=== PATIENT | female | born 1985 | race Caucasian/White ===

== ENCOUNTER 2022-11-24 09:05 | Emergency (ER) | payer OTHER, SELFPAY ==
[2022-11-24 09:14] VITALS: BP 122/80; PULSE 122; RESP 16; TEMP 38; O2SAT 99
--- NOTE | 2022-11-24 09:40 | ED.URI ---
HPI - URI/Sore Throat General Chief Complaint: Upper Respiratory Infection Stated Complaint: uri Time Seen by Provider: 11/24/22 09:41 Source: patient and RN notes reviewed Mode of arrival: ambulatory Limitations: no limitations History of Present Illness HPI Narrative: 37-year-old female presented for complaint of headache, body aches, sinus pressure/congestion, cough, fever/chills. Onset 2 days ago. Sore throat worsening over the last couple of days. Fever up to 101 today. Endorses a rash to the right rib area 1st noticed today. She endorses COVID exposure, states she tested negative yesterday and the day before when symptoms started. Denies shortness of breath, wheezing, nausea, vomiting, diarrhea. She is taking Tylenol for symptoms. MD elicited complaint: cough Related Data Home Medications Medication Instructions Recorded Confirmed levothyroxine 100 mcg tablet 100 mcg PO DAILY 11/24/22 11/24/22 (Levoxyl) Allergies Allergy/AdvReac Type Severity Reaction Status Date / Time sulfamethoxazole Allergy Swelling Verified 11/24/22 09:24 [From Bactrim] of Lip/Tongue/Throat trimethoprim [From Bactrim] Allergy Swelling Verified 11/24/22 09:24 of Lip/Tongue/Throat Review of Systems Review of Systems: CONSTITUTIONAL: Endorses malaise, chills, sweats, fever EYES: Denies visual changes, redness, or discharge ENT: Reports rhinorrhea, congestion, sinus pain, otalgia, sore throat CARDIOVASCULAR: Denies chest pain, palpitations, edema RESPIRATORY: Reports cough, post nasal drainage. Denies dyspnea GASTROINTESTINAL: Denies abdominal pain, nausea, vomiting, diarrhea SKIN: Denies rash or itching MUSCULOSKELETAL: Endorses myalgia Exam Narrative: GENERAL: Ill-appearing, nontoxic EYES: PERRLA, conjunctivae clear ENT: Mucous membranes moist. Nasal congestion. TMs pearly [place] with dull light reflex bilaterally; no tragal tenderness. Oropharynx erythematous without lesions or exudate, no drooling, no hoarseness, no trismus, uvula midline. CHEST: Clear to auscultation, breath sounds equal. HEART: Regular rate and rhythm. No murmur heard. SKIN: Warm, dry, no rash. NEURO: Alert and oriented x3. PSYCH: Normal mood and affect Course Course Emergency Course: Patient is aware of diagnosis, understands and agrees to treatment plan. Anticipatory guidance given. Patient agrees to follow-up as directed and is aware of reasons to seek care at the emergency department. Portions of this record may have been created with voice recognition software Level of Care: Express Care Visit Vital Signs Vital signs: Vital Signs Temperature 100.4 F H 11/24/22 09:14 Pulse Rate 122 H 11/24/22 09:14 Respiratory Rate 16 11/24/22 09:14 Blood Pressure 122/80 11/24/22 09:14 Pulse Oximetry 99 11/24/22 09:14 Oxygen Delivery Room Air 11/24/22 09:14 Temperature 100.4 F H 11/24/22 09:14 Pulse Rate 122 H 11/24/22 09:14 Respiratory Rate 16 11/24/22 09:14 Blood Pressure 122/80 11/24/22 09:14 Pulse Oximetry 99 11/24/22 09:14 Oxygen Delivery Room Air 11/24/22 09:14 reviewed MDM - URI/Sore Throat MDM Narrative Medical decision making narrative: Results of strep, COVID, flu reviewed with patient. Will treat for strep based on PE and cc. Advised supportive measures and signs/symptoms to go to the ER. Pt is appropriate for outpt treatment and f/u. Differential Diagnosis Differential diagnosis: Likely upper respiratory infection, sinusitis and viral infection Lab Data Labs: Lab Results 11/24/22 Range/Units 10:11 POC SARS CoV-2 Ag Pending Influenza A Screen Negative Reference Range: Negative Influenza B Screen Negative Reference Range: Negative Strep Screen Presumptive Negative *(Reference Range: Negativ
== END 2022-11-24 10:30 | disposition home or self-care (01) ==
PROVIDERS: Emergency Provider Nurse Practitioner Family; PCP Family Medicine
DX: J02.9 Acute pharyngitis, unspecified (principal); Z20.822 Contact with and (suspected) exposure to COVID-19
CPT/HCPCS: 87081; 87426; 87804; 87880; 99203; C9803; G0463

== ENCOUNTER 2024-02-01 15:10 | Outpatient (CLI) | payer OTHER, SELFPAY ==
--- NOTE | ~2024-02-01 | MM_ITS ---
EXAMINATION: MM screening hunter BI w stanislaw HISTORY: Screening TECHNIQUE: Craniocaudal and mediolateral oblique 3-D tomosynthesis images were obtained and synthetic 2-D images were generated. CAD analysis was submitted and interpreted. COMPARISON: 11/28/2013 BREAST PARENCHYMAL COMPOSITION: Dense: The breasts are extremely dense, which lowers the sensitivity of mammography. FINDINGS: There is no evidence of suspicious mass, calcification, or architectural distortion to sugg est malignancy in either breast. There has been no suspicious interval change. IMPRESSION: 1. No mammographic evidence of malignancy. 2. Recommend routine screening mammography in one year. BI-RADS Category 1: Negative Reviewed, dictated and finalized at location B.
== END 2024-02-01 15:11 ==
LOC: MICIMG 15:12
PROVIDERS: PCP Obstetrics & Gynecology; Visit Provider Obstetrics & Gynecology
DX: Z12.31 Encounter for screening mammogram for malignant neoplasm of breast (principal)
CPT/HCPCS: 77063; 77067

== ENCOUNTER 2024-04-10 10:36 | Observation (INO) | payer OTHER, SELFPAY ==
[2024-04-10] VITALS (9 sets, daily range): BP systolic 108–131; BP diastolic 72–96; PULSE 95–118; RESP 15–25; TEMP 36.5–37.2; O2SAT 98–100
--- NOTE | ~2024-04-10 | XR_ITS ---
Clinical Indication: Chest pain PA and lateral views of the chest: Comparison: None Findings: The lungs are clear, without evidence of focal consolidation or pleural effusion. Cardiome diastinal silhouette is within normal limits. Bones and soft tissues are unremarkable. Impression: Normal chest. Reviewed, dictated and finalized at location . Impression: Normal chest.
--- NOTE | ~2024-04-10 | CT_ITS ---
EXAMINATION: CTA chest PE protocol DATE: 04/10/2024 15:03 INDICATION: Chest pain. Shortness of breath. TECHNIQUE: Computed tomography angiography (CTA) of the chest was performed with 100 mL Omnipaque-350 intravenous contrast timed to evaluate the pulmonary arteries. Coronal maximum intensity projection 3D-reconstructions were created by the technologist. Automated exposure control and iterative reconst ruction technique were employed. The dose-length product was 170.99 mGy-cm. COMPARISON: CT abdomen and pelvis 12/26/2015 FINDINGS: There are airspace opacities with air bronchograms in the anterior segment right upper lobe . There are airspace and groundglass opacities with air bronchograms in left lower lobe. No pleural e ffusion. The heart size is normal. No pericardial effusion. There is no pulmonary embolus. There is m ild thoracic spondylosis. IMPRESSION: 1. Airspace opacities in right upper lobe and left lower lobe, consistent with pneumonia. 2. No pulmonary embolus. Reviewed, dictated and finalized at location A.
--- NOTE | 2024-04-10 10:37 | ECG_ITS ---
Test Date: 2024-04-10 10:41:54 Measurements Intervals [place] Rate: 121 P: 75 MT: 141 QRS: 56 QRSD: 97 T: 39 QT: 307 QTc: 436 Interpretive Statements SINUS TACHYCARDIA POSSIBLE RIGHT VENTRICULAR CONDUCTION DELAY [RSR (QR) IN V1/V2] ABNORMAL RHYTHM ECG No previous ECG available for comparison Electronically Signed On 04-10-2024 15:55:00 CDT by Vasu Chu M.D.
[2024-04-10 10:53] LABS: Basophils Percent Auto 0.5 % (0.2-1.2); Eosinophils Percent Auto 0.8 % (0-4.4); Hematocrit 40.2 % (37.0-47.0); Hemoglobin 13.4 g/dL (12.0-15.0); Immature Granulocyte Absolute 0.02 K/mm3 (0.00-0.031); Immature Granulocyte Percent A 0.5 % (0-0.5); Lymphocytes Absolute Auto 1.07 K/mm3 (0.9-3.2); Lymphocytes Percent Auto 28.7 % (18.3-44.2); Mean Corpuscular HGB Conc 33.3 g/dl (32-36); Mean Corpuscular Hemoglobin 29.9 pg (26-34); Mean Corpuscular Volume 89.7 fl (80-100); Mean Platelet Volume 9.7 fl (7.4-10.4); Monocytes Absolute Auto 0.5 K/mm3 (0.1-0.6); Monocytes Percent Auto 12.6 % (2.6-8.5); Neutrophils Absolute Auto 2.1 K/mm3 (1.3-6.7); Neutrophils Percent Auto 56.9 % (45.5-73.1); Platelet Count Result 291 k/mm3 (150-375); Red Blood Count 4.48 M/mm3 (4.2-5.4); Red Cell Distribution Width 11.9 % (11.5-14.5); White Blood Count 3.7 K/mm3 (4.5-10.0)
[2024-04-10 11:03] LABS: Prothrombin Time 13.2 Seconds (11.1-14.7)
[2024-04-10 11:05] LABS: Alanine Aminotransferase 21 U/L (6-35); Albumin Level 4.7 g/dL (3.5-5.1); Alkaline Phosphatase 67 U/L (38-126); Anion Gap 10 mmol/L (4-12); Aspartate Amino Transferase 30 U/L (14-36); Bilirubin,Total 0.4 mg/dL (0.2-1.3); Blood Urea Nitrogen 8 mg/dL (7-17); Calcium 9.4 mg/dL (8.4-10.2); Carbon Dioxide 26 mmol/L (22-30); Chloride 104 mmol/L (98-107); Estimated CRCL calculation 86 ml/min; Estimated Glomerular Filt Rate > 60; Glucose 100 mg/dL (65-110); Lipase 82 U/L (23-300); Potassium 3.7 mmol/L (3.4-5.0); Sodium 140 mmol/L (137-145)
[2024-04-10 11:15] LABS: Troponin I < 0.012 ng/mL (0.000-0.034)
[2024-04-10 11:17] LABS: Platelet Estimate Adequate (Adequate); Schistocytes None Seen
[2024-04-10] MEDS: ASPIRIN 81 MG CHEWABLE TABLET 324 MG PO (13:23)
--- NOTE | 2024-04-10 13:37 | ECG_ITS ---
Test Date: 2024-04-10 13:50:18 Measurements Intervals [place] Rate: 107 P: 62 UT: 145 QRS: 35 QRSD: 102 T: 29 QT: 345 QTc: 461 Interpretive Statements SINUS TACHYCARDIA MINOR RV CONDUCTION ABNORMALITY ABNORMAL RHYTHM ECG Compared to ECG 04/10/2024 10:41:54 No significant changes Electronically Signed On 04-10-2024 16:02:31 CDT by Vasu Chu M.D.
[2024-04-10 14:21] LABS: D Dimer 0.75 ug/mL (<0.48)
[2024-04-10] MEDS: SODIUM CHLORIDE 0.9% IV 1,000 ML 999 ML IV CONT (14:26)
[2024-04-10 14:31] LABS: Troponin I < 0.012 ng/mL (0.000-0.034)
--- NOTE | 2024-04-10 14:38 | ED.CHESTPAIN ---
HPI - Chest Pain General Chief Complaint: Chest Pain Stated Complaint: SOB, CP, fast HR (being treated for pneumonia) Time Seen by Provider: 04/10/24 13:27 Source: patient, RN notes reviewed and old records reviewed Mode of arrival: ambulatory Limitations: no limitations History of Present Illness HPI narrative: This is a 38 year old female who presents for evaluation of heart racing and shortness of breath. Patient states she developed nasal congestion, drainage, and minimally productive cough 1.5 weeks ago. She was evaluated by her PCP on Wednesday and diagnosed with walking pneumonia. SHe was started on albuterol inhaler, anjelica parikh. She states that she has noticed difficult taking a full deep breath and her heart rate has been elevated today. She reports she feels her heart pounding. HEr cough has improved. She states her son had similar symptoms 3 weeks ago. She just returned from a trip to [place]. She denies calf pain, fever, leg swelling or history of dvt/Pe. MD complaint: chest pain Related Data Home Medications Medication Instructions Recorded Confirmed multivitamin with minerals-folic 1 tablet PO HS 04/10/24 04/10/24 acid 120 mcg chewable tablet (Women's Multivitamin Gummies) Allergies Allergy/AdvReac Type Severity Reaction Status Date / Time acetaminophen Allergy Intermediate Swelling Verified 04/10/24 13:12 Sulfa (Sulfonamide Allergy Unknown THROAT Verified 04/10/24 13:12 Antibiotics) TIGHTENING, TROUBLE SWALLOWING sulfamethoxazole Allergy Swelling Verified 04/10/24 13:12 [From Bactrim] of Lip/Tongue/Throat trimethoprim [From Bactrim] Allergy Swelling Verified 04/10/24 13:12 of Lip/Tongue/Throat Review of Systems Constitutional: Constitutional: Denies weakness ENT: Reports nasal congestion Cardiovascular: Cardiovascular: Reports chest pain, Denies syncope, Reports rapid heart rate, Denies irregular heart rhythm, Denies leg edema and Reports dyspnea Respiratory: Respiratory: Denies chest congestion, Reports cough, Denies hemoptysis, Denies excessive phlegm production and Reports dyspnea Gastrointestinal: Gastrointestinal: Denies abdominal pain, Denies hematochezia, Denies diarrhea and Denies vomiting Genitourinary: Genitourinary: Denies hematuria and Denies dysuria Musculoskeletal: Musculoskeletal: Denies joint swelling, Denies loss of height and Denies muscle weakness Neurologic: Denies syncope, Denies focal weakness and Denies weakness PMFSH Past Medical History Medical History Hypothyroidism Telangiectasia macularis eruptiva perstans Family History Family History Grandparent Family history of malignant neoplasm of ovary, Onset Age: 67 Social History Social History Social History: Smoking status: Never smoker Second hand tobacco smoke exposure: No Alcohol intake: never Alcohol use details: Occasionally Substance use: never Substance use type: does not use Do You Feel Safe in your Home?: Yes Lack of Transportation: No Lack of Food: Never True Current Housing: I Have Housing Concerned About Future Housing: No Difficulty Paying Gas/Electric Bills: No Difficulty Paying for Meds: No Currently Unemployed: No Education: Decline to Answer Difficulty w/ Childcare or Family Care: No Living arrangements: with family Occupation/Education: occupation 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 Gender identity (if verbalized by the patient): Female Sexual Orientation (if Verbalized by the Patient): Straight or Heterosexual Spiritual care concerns: No Exam Const: General: no acute distress and alert Nutritional Appearance: well nourished Orientation/consciousness: patient oriented
[2024-04-10 14:58] LABS: Influenza A QL RT-PCR Negative (Negative); Influenza B QL RT-PCR Negative (Negative); SARS-CoV-2 RNA PCR Negative (Negative)
--- NOTE | 2024-04-10 16:12 | ECG_ITS ---
Test Date: 2024-04-10 16:17:23 Measurements Intervals [place] Rate: 102 P: 59 VA: 135 QRS: 27 QRSD: 97 T: 27 QT: 343 QTc: 448 Interpretive Statements SINUS TACHYCARDIA Compared to ECG 04/10/2024 13:50:18 No significant changes Electronically Signed On 04-11-2024 13:24:51 CDT by Randolph Seaman M.D.
--- NOTE | 2024-04-10 16:30 | PC.NURSE ---
This patient, Katie Betts, was admitted to [facility] Surg Room 311-01. Patient/family oriented to hospital policies and general routines including ID bracelet, bed and alarms, visiting hours, pain management, procedures, bathroom and other care routines, personal items, smoking policy, room service/diet, and visiting hours. Information on how to activate the Rapid Response Team has been discussed. Patient/Family are encouraged to report perceived risks to care and to ask questions if they do not understand what they are told or what they should do.
--- NOTE | 2024-04-10 16:53 | PM.IMHP ---
H&P: HPI History of Present Illness Date/Time: 04/10/24 20:00 Chief Complaint: Shortness of breath, chest pain, fast heart rate. Narrative: This is a 38-year-old female with hypothyroidism and mastocytosis who presented to the emergency department via private vehicle for evaluation of shortness of breath, chest pain, and fast heart rate. The patient provides the following history. She gives a 1.5 week history of nasal congestion, sinus drainage, and cough which has been really productive of yellow phlegm. Her appetite has not been great. She was seen by her primary care provider on Wednesday, was diagnosed with walking pneumonia, and was prescribed a Z-Derrell, Tessalon Perles, and an albuterol inhaler. She has only felt marginally better. This morning she developed left lower chest pleuritic pain, feelings as though she could not take a deep breath, and sensations of racing heart and she came in for evaluation. She denies exertional chest pain, syncope, near syncope, orthopnea, paroxysmal nocturnal dyspnea, lower extremity edema, calf pain, vomiting, and diarrhea. In the ED: She was afebrile on arrival. She has been in a sinus tachycardia with rates in the low 100s. Labs were significant for WBC count 3.7, hemoglobin 13.4, D-dimer 0.75, troponin less than 0.012. She tested negative for influenza and COVID. Chest CTA was negative for P but did show airspace opacities in the right upper lobe and left lower lobe consistent with pneumonia. She was given a dose of azithromycin and ceftriaxone and she is being admitted in this setting for further treatment. Review of Systems Review of Systems: 12 systems were reviewed and are negative except for as per HPI. [facility] Past Medical History Medical History (Updated 04/10/24 @ 21:41 by Yesika Bonilla PA-C) Hypothyroidism Mastocytosis Telangiectasia macularis eruptiva perstans Surgical History Surgical History (Updated 04/10/24 @ 21:38 by Yesika Bonilla PA-C) History of appendectomy History of inguinal hernia repair Family History Family History Grandparent Family history of malignant neoplasm of ovary, Onset Age: 67 Social History Social History (Updated 04/10/24 @ 21:39 by Yesika Bonilla PA-C) Social History: Surrogate medical decision maker: Rishi Betts, spouse. Code status: Full code. Smoking status: Never smoker Second hand tobacco smoke exposure: No Alcohol intake: current Alcohol use details: Occasionally alcohol use in moderation. Substance use: never Substance use type: does not use Do You Feel Safe in your Home?: Yes Lack of Transportation: No Lack of Food: Never True Current Housing: I Have Housing Concerned About Future Housing: No Difficulty Paying Gas/Electric Bills: No Difficulty Paying for Meds: No Currently Unemployed: No Education: Don't Know Difficulty w/ Childcare or Family Care: No Living arrangements: with family Additional living arrangements comments: Lives with spouse and children in [place]. 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 Spiritual care concerns: No Meds Home Medications and Allergies Home Medications Medication Instructions Recorded Confirmed Type levothyroxine 112 mcg tablet 112 mcg PO DAILY #30 tabs 02/09/24 04/10/24 Rx albuterol sulfate 90 mcg/actuation 1 inh inhalation Q4H PRN shortness 04/07/24 04/10/24 Rx aerosol inhaler of breath or wheezing #8.5 grams azithromycin 250 mg tablet See Rx Instructions PO .COMPLEX #6 04/07/24 04/10/24 Rx (Zithromax Z-Derrell) tabs benzonatate 100 mg capsule 200 mg PO TID PRN cough #60 caps 04/07/24 04/10/24 Rx multivitamin with minerals-folic 1 tablet PO HS 04/10/24 04/10/24 History acid 120 mcg chewable tablet (Women's Multivitamin Gummies) Allergies Allergy/AdvReac Type Severity Reaction St
[2024-04-10 16:56] LABS: Troponin I < 0.012 ng/mL (0.000-0.034)
[2024-04-10] MEDS: SODIUM CHLORIDE 0.9% IV 1,000 ML 125 ML IV CONT (17:18)
[2024-04-10] MEDS: AZITHROMYCIN 500 MG/NS 250 ML 500 MG/250 ML BAG 250 MG IVPB (18:31)
[2024-04-11] MEDS: IBUPROFEN 400 MG TABLET 800 MG PO (02:22)
[2024-04-11] MEDS: traZODone HCL 50 MG TABLET PO (02:22)
[2024-04-11] MEDS: LEVOTHYROXINE SODIUM 112 MCG TABLET PO (05:18)
[2024-04-11 05:27] VITALS: BP 102/62; PULSE 98; RESP 16; TEMP 36.9; O2SAT 98
[2024-04-11 05:43] LABS: Basophils Percent Auto 0.4 % (0.2-1.2); Eosinophils Absolute Auto 0.1 K/mm3 (0-0.3); Eosinophils Percent Auto 1.1 % (0-4.4); Hematocrit 35.7 % (37.0-47.0); Hemoglobin 11.6 g/dL (12.0-15.0); Immature Granulocyte Absolute 0.02 K/mm3 (0.00-0.031); Immature Granulocyte Percent A 0.4 % (0-0.5); Lymphocytes Absolute Auto 1.33 K/mm3 (0.9-3.2); Lymphocytes Percent Auto 29.4 % (18.3-44.2); Mean Corpuscular HGB Conc 32.5 g/dl (32-36); Mean Corpuscular Hemoglobin 29.9 pg (26-34); Mean Platelet Volume 9.6 fl (7.4-10.4); Monocytes Absolute Auto 0.5 K/mm3 (0.1-0.6); Neutrophils Absolute Auto 2.6 K/mm3 (1.3-6.7); Neutrophils Percent Auto 57.7 % (45.5-73.1); Platelet Count Result 236 k/mm3 (150-375); Red Blood Count 3.88 M/mm3 (4.2-5.4); White Blood Count 4.5 K/mm3 (4.5-10.0)
[2024-04-11 05:55] LABS: Alanine Aminotransferase 17 U/L (6-35); Albumin Level 3.8 g/dL (3.5-5.1); Alkaline Phosphatase 56 U/L (38-126); Anion Gap 6 mmol/L (4-12); Aspartate Amino Transferase 25 U/L (14-36); Bilirubin,Total 0.4 mg/dL (0.2-1.3); Blood Urea Nitrogen 8 mg/dL (7-17); Calcium 8.2 mg/dL (8.4-10.2); Carbon Dioxide 26 mmol/L (22-30); Chloride 107 mmol/L (98-107); Estimated CRCL calculation 86 ml/min; Estimated Glomerular Filt Rate > 60; Glucose 91 mg/dL (65-110); Potassium 3.6 mmol/L (3.4-5.0); Sodium 139 mmol/L (137-145)
[2024-04-11 06:09] LABS: Platelet Estimate Adequate (Adequate)
[2024-04-11 06:10] LABS: Anisocytosis 1+; Schistocytes None Seen
[2024-04-11 07:04] LABS: Free T4 Free Thyroxine Reflex 1.72 ng/dL (0.78-2.19)
[2024-04-11 07:47] VITALS: O2SAT 97
[2024-04-11] MEDS: ENOXAPARIN 40 MG/0.4 ML SYRINGE SUB-Q (09:03)
[2024-04-11 09:15] LABS: Total Triiodothyronine (T3) 1.15 NG/ML (0.97-1.69)
[2024-04-11] MEDS: guaiFENesin 12 HR 600 MG TABCR PO (10:45)
--- NOTE | 2024-04-11 12:03 | PM.DS ---
DS: Admitting Diagnosis Discharge Date 04/11/2024 Admitting Diagnosis Pneumonia DS: Discharge Diagnosis Discharge Diagnosis (1) Multifocal pneumonia: Code(s): J18.9 - Pneumonia, unspecified organism Status: Acute (2) Neutropenia: Code(s): D70.9 - Neutropenia, unspecified Status: Acute (3) Hypothyroidism: Code(s): E03.9 - Hypothyroidism, unspecified Status: Acute (4) Mastocytosis: Code(s): D47.09 - Other mast cell neoplasms of uncertain behavior Status: Acute Plan The patient presented to the emergency department for evaluation of pleuritic pain, racing heart, and feelings of shortness of breath after being diagnosed diagnosed with walking pneumonia last week as detailed in HPI. Labs, imaging, EKG, and all reports were personally reviewed. Chest CTA was negative for PE but did show multifocal pneumonia. She has been started on azithromycin and ceftriaxone. Attempt sputum for culture. Check Legionella pneumococcal antigens as well as mycoplasma IgM. She has chronic, mild neutropenia which is stable. Continue levothyroxine and check TSH. She mainly has cutaneous manifestations of her mastocytosis and has not had any recent issues. Findings and treatment plan were discussed with the patient. Questions were solicited and answered to satisfaction. The patient's medical management will be taken over by the hospitalist team in a.m. DS: Summary Hospital Course Reason for hospitalization: Pneumonia Hospital Course: Admission: Medical Record Chief Complaint: Shortness of breath, chest pain, fast heart rate. Narrative: This is a 38-year-old female with hypothyroidism and mastocytosis who presented to the emergency department via private vehicle for evaluation of shortness of breath, chest pain, and fast heart rate. The patient provides the following history. She gives a 1.5 week history of nasal congestion, sinus drainage, and cough which has been really productive of yellow phlegm. Her appetite has not been great. She was seen by her primary care provider on Wednesday, was diagnosed with walking pneumonia, and was prescribed a Z-Derrell, Tessalon Perles, and an albuterol inhaler. She has only felt marginally better. This morning she developed left lower chest pleuritic pain, feelings as though she could not take a deep breath, and sensations of racing heart and she came in for evaluation. She denies exertional chest pain, syncope, near syncope, orthopnea, paroxysmal nocturnal dyspnea, lower extremity edema, calf pain, vomiting, and diarrhea. In the ED: She was afebrile on arrival. She has been in a sinus tachycardia with rates in the low 100s. Labs were significant for WBC count 3.7, hemoglobin 13.4, D-dimer 0.75, troponin less than 0.012. She tested negative for influenza and COVID. Chest CTA was negative for P but did show airspace opacities in the right upper lobe and left lower lobe consistent with pneumonia. She was given a dose of azithromycin and ceftriaxone and she is being admitted in this setting for further treatment. 04/11: Assumed Care/Discharged Upon follow up patient was comfortable in no acute respiratory distress on room air at 100%. Mildly diminished lung sound otherwise clear. Patient report no further SOB and pleuritic pain from coughing had improved with minimal sputum. WBC 4.5 and all other labs unremarkable. Vitals stable tachycardia improved. Patient with no acute events overnight and remained afebrile. Overall improvement to symptoms and was discharged home on Augmentin for CAP coverage. Status at Discharge Functional status at discharge: independent ambulation Overall status at discharge: patient is back to baseline Time Spent with Patient Time attestation: Total time spent providing and/or coordinating discharge services: Time spent: Less than 30 minutes Exam Narrative: General: Mildly ill-appearing female sitting up in bed in no acute distress. Weight: 63 k
[2024-04-13 17:49] LABS: Mycoplasma IgM Antibody Titer 2868 U/mL
== END 2024-04-11 13:30 | disposition home or self-care (01) ==
LOC: ANHED 15:57 → ANH3MEDSUR 04-11 07:12
PROVIDERS: Emergency Medicine; Physician Assistant; Admitting Provider Hospitalist; Emergency Provider General Practice; PCP Family Medicine; Visit Provider Nurse Practitioner Family
DX: J18.9 Pneumonia, unspecified organism (principal); D70.9 Neutropenia, unspecified; R00.0 Tachycardia, unspecified; E03.9 Hypothyroidism, unspecified; D47.09 Other mast cell neoplasms of uncertain behavior; Z79.51 Long term (current) use of inhaled steroids; Z20.822 Contact with and (suspected) exposure to COVID-19
CPT/HCPCS: 36415; 71046; 71275; 80053; 81025; 83690; 83735; 84439; 84443; 84480; 84484; 85025; 85380; 85610; 85730; 86738; 87040; 87636; 93005; 94664; 96361; 96365; 96367; 96372; 99285; A9270; G0378; J0456; J0696; J1650; J7030; Q9967

== ENCOUNTER 2025-02-05 13:46 | Outpatient (CLI) | payer OTHER, SELFPAY ==
--- NOTE | ~2025-02-05 | MM_ITS ---
EXAMINATION: MM screening hunter BI w stanislaw HISTORY: Screening TECHNIQUE: Craniocaudal and mediolateral oblique 3-D tomosynthesis images were obtained and synthetic 2-D images were generated. CAD analysis was submitted and interpreted. COMPARISON: 02/01/2024 and 11/28/2013 BREAST PARENCHYMAL COMPOSITION: The breasts are extremely dense, which lowers the sensitivity of mamm ography. FINDINGS: Stable parenchymal pattern without suspicious microcalcifications, architectural distortion, discrete masses or significant asymmetry. IMPRESSION: 1. No mammographic evidence of malignancy. 2. Recommend routine screening mammography in one year. BI-RADS Category 1: Negative Reviewed, dictated and finalized at location A.
== END 2025-02-05 13:47 | disposition home or self-care (01) ==
LOC: MICIMG 13:47
PROVIDERS: PCP Family Medicine; Visit Provider Obstetrics & Gynecology
DX: Z12.31 Encounter for screening mammogram for malignant neoplasm of breast (principal)
CPT/HCPCS: 77063; 77067